=== PATIENT | male | born 1930 | race Caucasian/White ===

== ENCOUNTER 2016-12-15 11:03 | Inpatient (IN) | payer OTHER, BC ==
[~2016-12-15] VITALS: Ht 180.3 cm; Wt 97.5 kg
[~2016-12-15 11:03] MED LIST: ADULTS' DAILY1 EACH PO; ALEVE220 M2 PO; ASPIRIN325 MG PO; ASPIRIN81 M1 PO; Aspirin E.C. PO; CLOPIDOGREL75 MG PO; COZAAR100 MG PO; Cozaar PO; DOCUSATE SODIU100 MG PO; FELODIPINE ER10 MG PO; FIBER CHOICE CHE2 GM PO; FIBER CHOICE1 TABLET PO; FIBER THERAPY0.52 GM PO; FISH OIL + VIT1 EACH PO; FISH OIL 1,0001 EACH PO; FLONASE16 G1 BOTH NARES; INDOCIN50 MG PO; LANSOPRAZOLE30 MG PO; METOPROLOL SUCC25 MG PO; MULTI-VITAMIN1 EAC1 PO; MULTIVITAMIN1 EAC2 PO; NORCO 5/3251 TABLET PO; Omega III EPA + DHA PO; PLAVIX75 MG PO; PLENDIL5 M1 PO; PLENDIL5 MG PO; PRESERVISION A1 EACH PO; PRESERVISION T1 EACH PO; PREVACID30 MG PO; PRILOSEC20 MG PO; Plavix PO; SIMVASTATIN40 MG PO; ST. JOSEPH ASPI81 MG PO; TEMAZEPAM15 MG PO; TOPROL XL6.25 MG PO; TOVIAZ4 MG PO; Theragran PO; Toprol XL PO; Tums PO; ZANTAC150 M1 PO; Zocor PO
[2016-12-15 12:40] LABS: EOSINOPHIL (%) 0.6 % (0-5); HEMATOCRIT 45.7 % (38.0-50.0); IMMATURE GRANULOCYTE (%) 0.3 % (0.0-0.7); INSTRUMENT ABS NEUTROPHIL CT 5.6 K/uL; MCH 32.1 PG (29.0-34.0); MCV 91.8 FL (86-99); MEAN PLAT.VOLUME 10.3 uM^3 (9.0-12.4); MONOCYTE (%) 7.5 % (3-12); MONOCYTE COUNT 0.5 K/uL (0-0.8); NEUTROPHIL (%) 77.5 % (45-76); NEUTROPHIL COUNT 5.6 K/uL (1.8-6.4); PLATELET COUNT 148 K/uL (156-360); RBC DIS.WIDTH-CV 12.7 % (11.8-14.6); RBC DIS.WIDTH-SD 42.5 % (39-53); RED BLOOD COUNT 4.98 M/uL (4.00-5.50); WHITE BLOOD COUNT 7.2 K/uL (4.1-10.2)
[2016-12-15 12:52] LABS: CHLORIDE 105 mEq/L (99-109); POTASSIUM 4.9 mEq/L (3.7-5.4); SODIUM 135 mEq/L (136-147)
[2016-12-15 12:53] LABS: GLUCOSE 115 mg/dL (70-99)
[2016-12-15 12:55] LABS: ANION GAP 11 MEQ/L (2-14)
[2016-12-15 12:57] LABS: GFR ESTIMATE (CALCULATED) > 59 mL/min/
[2016-12-15 12:58] LABS: UREA NITROGEN (BUN) 15 mg/dL (9-23)
[2016-12-15 13:00] LABS: TROP-I INTERPRETATION NEGATIVE; TROPONIN-I 0.04 ng/mL (0.0-0.30)
[2016-12-15] MEDS ORDERED: VALSARTAN320 MG PO (13:51)
[2016-12-15] MEDS ORDERED: PLAVIX75 MG PO (13:53)
[2016-12-15] MEDS ORDERED: SYSTANE BALANCE10 ML BOTH EYES (13:54)
[2016-12-15 18:24] LABS: TROP-I INTERPRETATION NEGATIVE; TROPONIN-I 0.29 ng/mL (0.0-0.30)
[2016-12-15 19:00] VITALS: BP 170/84
[2016-12-16] VITALS (7 sets, daily range): BP systolic 141–174; BP diastolic 73–86
[2016-12-16 00:51] LABS: TROP-I INTERPRETATION NEGATIVE; TROPONIN-I 0.27 ng/mL (0.0-0.30)
[2016-12-16 09:18] LABS: TROP-I INTERPRETATION NEGATIVE; TROPONIN-I 0.15 ng/mL (0.0-0.30)
[2016-12-17 04:06] VITALS: BP 131/63
[2016-12-17 07:09] VITALS: BP 144/73
[2016-12-17] MEDS ORDERED: BRILINTA90 MG PO (07:44)
[2016-12-17 11:18] VITALS: BP 98/55
== END 2016-12-17 14:32 | disposition home or self-care (01) | DRG 247 ==
LOC: EME 11:03 → EDOF 13:16 → 5WEST 13:16 → 4EAST 12-16 10:25 → 5WEST 12-16 10:25 → 4EAST 12-16 16:58
PROVIDERS: Emergency Medicine; Hospitalist; Physician Assistant Medical
DX: I25.710 Atherosclerosis of autologous vein coronary artery bypass graft(s) with unstable angina pectoris (principal); I25.110 Atherosclerotic heart disease of native coronary artery with unstable angina pectoris; I35.0 Nonrheumatic aortic (valve) stenosis; I25.82 Chronic total occlusion of coronary artery; Z95.1 Presence of aortocoronary bypass graft; E78.5 Hyperlipidemia, unspecified; I10 Essential (primary) hypertension; I73.9 Peripheral vascular disease, unspecified; Z87.891 Personal history of nicotine dependence
CPT/HCPCS: 71020; 80048; 84484; 85025; 93005; 93306; 99281; 99284; C1725; C1760; C1769; C1788; C1874; C1887; C1894; G0378; J0360; J1644; J1650; J2250; J3010; J3246; J7030

== ENCOUNTER 2017-10-10 20:49 | Observation (INO) | payer OTHER, BC ==
[~2017-10-10] VITALS: Ht 180.3 cm; Wt 96.9 kg
[~2017-10-10 20:49] MED LIST changes: +BRILINTA90 MG PO; -LANSOPRAZOLE30 MG PO; +OMEPRAZOLE20 MG PO; +SYSTANE BALANCE10 ML BOTH EYES; +VALSARTAN320 MG PO
[2017-10-10 21:22] LABS: HEMATOCRIT 48.7 % (38.0-50.0); MCH 32.3 PG (29.0-34.0); MCHC 34.9 G/DL (30.0-36.0); MCV 92.4 FL (86-99); PLATELET COUNT 174 K/uL (156-360); RBC DIS.WIDTH-CV 13.3 % (11.8-14.6); RBC DIS.WIDTH-SD 44.9 % (39-53); RED BLOOD COUNT 5.27 M/uL (4.00-5.50); WHITE BLOOD COUNT 6.4 K/uL (4.1-10.2)
[2017-10-10 21:42] LABS: TROP-I INTERPRETATION NEGATIVE; TROPONIN-I < 0.01 ng/mL (0.0-0.30)
[2017-10-10 21:45] LABS: CHLORIDE 107 MEQ/L (99-109); POTASSIUM 4.6 MEQ/L (3.7-5.4); SODIUM 139 MEQ/L (136-147)
[2017-10-10 21:50] LABS: CREATININE 1.2 MG/DL (0.6-1.3); GFR ESTIMATE (CALCULATED) > 59 mL/min/ (58.99-99999); GLUCOSE 121 mg/dL (70-99); UREA NITROGEN (BUN) 19 mg/dL (9-23)
[2017-10-11] MEDS ORDERED: RESTORIL15 MG PO (00:27)
[2017-10-11] MEDS ORDERED: ALIGN4 MG PO (00:27)
[2017-10-11] MEDS ORDERED: AFRIN,GENASAL D15 ML BOTH NARES (00:28)
[2017-10-11 03:01] LABS: TROP-I INTERPRETATION NEGATIVE; TROPONIN-I < 0.01 ng/mL (0.0-0.30)
[2017-10-11 04:11] VITALS: BP 147/67
[2017-10-11 07:49] VITALS: BP 138/82
[2017-10-11 09:31] LABS: HDL CHOLESTEROL 46 MG/DL (Desirable>=40); LDL CHOLESTEROL 45 mg/dL (Desirable<100); NON-HDL CHOLESTEROL 93 mg/dL (Desirable<160); TOTAL CHOLESTEROL 139 mg/dL (Desirable<200); TRIGLYCERIDES 242 MG/DL (Normal: <150)
[2017-10-11 09:36] LABS: TROP-I INTERPRETATION NEGATIVE; TROPONIN-I < 0.01 ng/mL (0.0-0.30)
[2017-10-11 12:26] VITALS: BP 133/77
== END 2017-10-11 14:46 | disposition home or self-care (01) ==
LOC: EME 20:49 → ENPENDDIS 10-11 → ENRESERV 10-11 02:53 → EDOF 10-11 02:53 → ENRESERV 10-11 03:06 → 5WEST 10-11 04:00
PROVIDERS: Emergency Medicine; Hospitalist; Physician Assistant Medical
DX: R07.89 Other chest pain (principal); I10 Essential (primary) hypertension; E78.5 Hyperlipidemia, unspecified; I25.810 Atherosclerosis of coronary artery bypass graft(s) without angina pectoris; I08.3 Combined rheumatic disorders of mitral, aortic and tricuspid valves; I27.20 Pulmonary hypertension, unspecified; Z79.82 Long term (current) use of aspirin; Z98.890 Other specified postprocedural states; I65.21 Occlusion and stenosis of right carotid artery; Z87.891 Personal history of nicotine dependence; Z90.49 Acquired absence of other specified parts of digestive tract; Z95.1 Presence of aortocoronary bypass graft; Z95.5 Presence of coronary angioplasty implant and graft; Z86.19 Personal history of other infectious and parasitic diseases; I87.8 Other specified disorders of veins; I48.0 Paroxysmal atrial fibrillation; K21.9 Gastro-esophageal reflux disease without esophagitis; H35.30 Unspecified macular degeneration; M10.9 Gout, unspecified; Z87.19 Personal history of other diseases of the digestive system; Z86.010 Personal history of colon polyps; Z82.49 Family history of ischemic heart disease and other diseases of the circulatory system; Z83.3 Family history of diabetes mellitus; Z79.02 Long term (current) use of antithrombotics/antiplatelets
CPT/HCPCS: 71046; 71275; 80048; 80061; 83605; 84484; 85027; 85379; 93005; 99281; 99285; G0378